=== PATIENT | male | born 1945 | race African-American/Black ===

== ENCOUNTER → 2016-08-12 | Outpatient (CLI) | payer MEDICARE ==
[~2016-08-12] MED LIST: ALBUTEROL0.63 MG/3 INH; ALBUTEROL0.83 MG/ML INH; AMIODARONE PO; AMLODIPINE BESYL5 MG PO; AMLODIPINE-ATO1 EACH PO; APRESOLINE PO; ARICEPT PO; ARICEPT5 M1 PO; ASPIRIN ENTERI325 M1 PO; ASPIRIN PO; ASPIRINEC PO; BAYER ASPIRIN325 M1 PO; BRILINTA90 MG PO; BUDESONIDE0.5 MG/2 M INH; CLINDAMYCIN HC300 MG PO; COLACE PO; CYCLOBENZAPRINE5 MG PO; FAMOTIDINE PO; FAMOTIDINE20 M1 PO; FISH OIL 1,0001 CAP PO; HCTZ PO; HYDRALAZINE HCL25 MG PO; HYDROCODON-ACE1 EAC7 PO; IBUPROFEN PO; IMDUR PO; IMDUR-ER60 M1 PO; LEVAQUIN PO; LEVOFLOXACIN500 MG PO; LIPITOR20 MG PO; LIPITOR40 MG PO; LOPRESSOR PO; METHOCARBAMOL500 MG PO; NAMENDA XR28 MG PO; NAMENDA10 MG PO; NITROGYLCERIN SUBLINGUAL; NITROSTAT0.4 MG SL; NORVASC PO; PEPCID PO; PERFOROMIS20 MCG/2 M INH; PLAVIX PO; PRAVACHOL PO; PULMICORT0.5 MG/21 INH; TESSALON200 MG PO; TICLID250 MG PO; TOPROL XL PO; VICODIN 5/500 T1 TAB PO; VITAMIN D 4001 UDTAB PO; ZYRTEC PO; ZYRTEC10 M1 PO
[2016-08-12 15:10] LABS: BASOPHIL# 0.1 X10e3 (0-0.3); BASOPHIL% 0.8 % (0-2.5); EOSINOPHIL# 0.2 X10e3 (0-0.7); EOSINOPHIL% 2.1 % (0.0-7.0); HEMOGLOBIN 14.5 gm/dL (13.0-16.0); LYMPHOCYTE# 3.8 X10e3 (1.0-3.5); LYMPHOCYTE% 32.2 % (17.0-45.0); MEAN CELL VOLUME 94.6 FL (83-96); MEAN CORPUSCULAR HEMOGLOBIN 30.5 PG (28-34); MEAN CORPUSCULAR HGB CONC 32.2 g/dL (30-36); MEAN PLATELET VOLUME 9.2 FL (6.5-11.5); MONOCYTE# 1.2 X10e3 (0-1.0); MONOCYTE% 10.2 % (3.0-12.0); NEUTROPHIL# 6.5 X10e3 (1.5-7.1); NEUTROPHIL% 54.7 % (40-75); PLATELET COUNT 264 X10e3 (140-420); RED BLOOD COUNT 4.75 X10e (3.90-5.60); RED CELL DISTRIBUTION WIDTH 13.7 % (11.0-15.5); WHITE BLOOD COUNT 11.9 X10e3 (4.0-10.5)
[2016-08-12 15:11] LABS: DIFF IND NO
[2016-08-12 15:21] LABS: ALBUMIN SERUM 4.1 g/dL (3.5-5.0); BILIRUBIN,TOTAL 0.6 mg/dL (0.2-2.0); BUN/CREATININE RATIO 9.44; CALCIUM SERUM 9.1 mg/dL (8.4-10.2); CREATININE SERUM 1.8 mg/dL (0.6-1.4); GLOM FILT RATE Estimated 48.2 mL/min (>60)
[2016-08-12 15:57] LABS: URINE APPEARANCE CLEAR; URINE BILIRUBIN NEG (NEG); URINE BLOOD NEG (NEG); URINE COLOR DK YELLOW; URINE GLUCOSE >1000 MG/DL (NEG); URINE KETONE TRACE (NEG); URINE LEUKOCYTE ESTERASE NEG (NEG); URINE NITRATE NEG (NEG); URINE PH 5.5 (5-8); URINE PROTEIN 1+ (NEG); URINE SPECIFIC GRAVITY 1.037 (1.003-1.035)
[2016-08-12 15:59] LABS: URBCS1 AUWI 0-2 /[HPF] (0-2); URINE BACTERIA AUWI NEG (NEGATIVE); URINE SQUAMOUS EPITHELIAL CELL NONE SEEN /[HPF]; UWBCS1 AUWI 0-2 (0-5)
[2016-08-14 08:05] LABS: MICROALB UR (PNL) 14.7 mg/dL (***)
== END | disposition home or self-care (01) ==
LOC: CLAB 14:12
PROVIDERS: Internal Medicine Nephrology
DX: N18.3 Chronic kidney disease, stage 3 (moderate) (principal)
CPT/HCPCS: 36415; 80053; 81003; 82043; 82570; 85025

== ENCOUNTER 2016-10-13 17:49 | Emergency (ER) | payer MEDICARE ==
--- NOTE | ~2016-10-13 | CR281 ---
[facility] A Service of [facility] RADIOLOGY TEXT RESULTS PATIENT: KENDRICK TOLENTINO LOCATION: [facility] : 45 UNIT #: [id number] AGE: [address]: Raghu Chan MD SEX: M ORDER DR: [id number] [facility] [address] [place], [place] [address] [id number] E MR#: [id number] #: [id number] NAME: KENDRICK TOLENTINO : 1945 SEX: M STUDY DATE/TIME: 10/13/2016 18:23 UNIT: [facility] ROOM: STUDY DESCRIPTION: CR Wrist Min 3 View Lt Attending Physician: Teddy Chan M.D. Ordering Physician: Ed Doctor [id number] [facility] Primary Care Physician: Luis Carrasco Jr., M.D. MEDICAL IMAGING REPORT This report is preliminary unless electronic signature is present EXAM Left wrist 3 views HISTORY Wrist pain and swelling today. No injury. FINDINGS 3 views of the left wrist demonstrate slight widening of the scapholunate interspace suggesting scapholunate ligament injury. This could be chronic. Mild degenerative changes at the radiocarpal joint and [id number]-[id number] degenerative changes at the first CMC joint. No fracture. No dislocation. IMPRESSION 1. 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 2. No fracture. 3. Slight widening of the scapholunate interspace suggesting scapholunate ligament injury. This is of uncertain duration and could be chronic. Dictated by... Buck Bryant M.D. THIS IS AN ELECTRONICALLY VERIFIED REPORT Buck Bryant M.D. at 10/14/2016 12:56 PM [place] TD: 10/14/2016 08:36 JOB #: [id number] MEDICAL IMAGING REPORT Page 1 of 1 COPY
[~2016-10-13 17:49] MED LIST changes: -HYDROCODON-ACE1 EAC7 PO; -IBUPROFEN PO
[2016-10-13] MEDS ORDERED: IBUPROFEN PO (19:56)
[2016-10-13] MEDS ORDERED: HYDROCODON-ACE1 EAC7 PO (19:57)
== END 2016-10-13 20:09 | disposition home or self-care (01) ==
LOC: CED 17:49
DX: M65.4 Radial styloid tenosynovitis [de Quervain] (principal); E78.5 Hyperlipidemia, unspecified; I10 Essential (primary) hypertension; J44.9 Chronic obstructive pulmonary disease, unspecified; F17.210 Nicotine dependence, cigarettes, uncomplicated; Z95.1 Presence of aortocoronary bypass graft; Z98.890 Other specified postprocedural states
CPT/HCPCS: 73110; 99283

== ENCOUNTER → 2017-01-29 | Outpatient (CLI) | payer MEDICARE ==
[~2017-01-29] MED LIST changes: +HYDROCODON-ACE1 EAC7 PO; +IBUPROFEN PO
[2017-01-29 10:31] LABS: BASOPHIL# 0.1 X10e3 (0-0.3); EOSINOPHIL# 0.3 X10e3 (0-0.7); EOSINOPHIL% 2.3 % (0.0-7.0); HEMATOCRIT 44.9 % (38.0-50.0); HEMOGLOBIN 14.8 gm/dL (13.0-16.0); LYMPHOCYTE# 3.1 X10e3 (1.0-3.5); LYMPHOCYTE% 25.9 % (17.0-45.0); MEAN CELL VOLUME 94.3 FL (83-96); MEAN CORPUSCULAR HEMOGLOBIN 31.2 PG (28-34); MONOCYTE# 1.2 X10e3 (0-1.0); MONOCYTE% 10.2 % (3.0-12.0); NEUTROPHIL# 7.3 X10e3 (1.5-7.1); NEUTROPHIL% 60.6 % (40-75); PLATELET COUNT 273 X10e3 (140-420); RED BLOOD COUNT 4.76 X10e (3.90-5.60); RED CELL DISTRIBUTION WIDTH 14.7 % (11.0-15.5); WHITE BLOOD COUNT 12.1 X10e3 (4.0-10.5)
[2017-01-29 10:33] LABS: DIFF IND NO
[2017-01-29 10:36] LABS: URINE APPEARANCE CLEAR; URINE BILIRUBIN NEG (NEG); URINE BLOOD NEG (NEG); URINE COLOR DK YELLOW; URINE GLUCOSE 100 MG/DL (NEG); URINE KETONE NEG (NEG); URINE LEUKOCYTE ESTERASE NEG (NEG); URINE NITRATE NEG (NEG); URINE PROTEIN 2+ (NEG); URINE SPECIFIC GRAVITY 1.029 (1.003-1.035)
[2017-01-29 10:42] LABS: URBCS1 AUWI 0-2 /[HPF] (0-2); URINE BACTERIA AUWI NEG (NEGATIVE); URINE SQUAMOUS EPITHELIAL CELL NONE SEEN /[HPF]; UWBCS1 AUWI 0-2 (0-5)
[2017-01-29 11:54] LABS: BILIRUBIN,TOTAL 0.8 mg/dL (0.2-2.0); CALCIUM SERUM 9.2 mg/dL (8.4-10.2); CREATININE SERUM 1.6 mg/dL (0.6-1.4); GLOM FILT RATE Estimated 49.5 mL/min (>60); POTASSIUM 4.2 mmol/L (3.5-5.1); PROTEIN TOTAL SERUM 7.1 g/dL (6.0-8.3)
[2017-01-29 12:07] LABS: CREATININE,RANDOM URINE 534 mg/dL; TOTAL PROTEIN,RANDOM URINE 75 mg/dl (<10)
== END | disposition home or self-care (01) ==
LOC: CLAB 09:57
PROVIDERS: Internal Medicine Nephrology
DX: N18.3 Chronic kidney disease, stage 3 (moderate) (principal)
CPT/HCPCS: 36415; 80053; 81003; 82570; 84156; 85025